=== PATIENT | female | born 1960 | race African-American/Black ===

== ENCOUNTER 2017-03-23 13:09 | Emergency (ER) | payer MEDICAID ==
[~2017-03-23] VITALS: Ht 162.6 cm; Wt 72.6 kg
[2017-03-23 13:27] VITALS: BP 146/100
--- NOTE | 2017-03-23 14:04 | Emergency Room Report ---
History of Present Illness General Chief Complaint: Pain Source: EMS (Ashley De.ASukhdev) Present Illness HPI 56-year-old female presents emergency department complaining of 10 out of 10 in severity total body pain x 3 days with lower extremity weakness x 3 days. She reports history of multiple CVAs in the past patient is a poor historian and family was contacted who called 911 and stated that patient was complaining of subjective fevers, aches and pains throughout the body x3 days denies history of trauma or fall. They report a history of diabetes. She reports long- standing history of present she will weakness and paresthesia in the right arm secondary to CVA in the past . Denies incontinence of bowel or bladder. Denies CP, Palpitations, LOC, AMS, dizziness, Changes in Vision, or a sudden severe headache. (Ashley De P.Adrienne.) Allergies: Coded Allergies: No Known Allergies (Unverified , 03/23/17) Nursing Documentation-[facility] Past Medical History: No History, Except For Hx Cerebrovascular Accident: Yes (Ashley De.Nyasia) Physical Exam Vital Signs Date Time Temp Pulse Resp B/P (MAP) Pulse Ox O2 Delivery O2 Flow Rate FiO2 03/23/17 13:12 98.4 80 20 146/100 100 Room Air (Ashley De.Nyasia) Medical Decision Making PA Attestation Dr. hitchcock is my supervising Physician whom patient management has been discussed with. (Ashley De P.ASukhdev) Diagnostic Impression: Primary Impression: Non-ST elevated myocardial infarction Additional Impressions: Generalized weakness History of CVA with residual deficit UTI (urinary tract infection) Qualified Codes: N30.01 - Acute cystitis with hematuria ER Course 56-year-old female presents emergency department complaining of 10 out of 10 in severity total body pain x 3 days with lower extremity weakness x 3 days. She reports history of multiple CVAs in the past patient is a poor historian and family was contacted who called 911 and stated that patient was complaining of subjective fevers, aches and pains throughout the body x3 days denies history of trauma or fall. They report a history of diabetes. She reports long- standing history of present she will weakness and paresthesia in the right arm secondary to CVA in the past . Denies incontinence of bowel or bladder. Denies CP, Palpitations, LOC, AMS, dizziness, Changes in Vision, or a sudden severe headache. Ddx considered but are not limited to : MS, MG, guilan barre, NV, drug intoxication, hypovolemia, infection, rhabdomylosis, ETOH, CVA/TIA, NMS Vital signs: are WNL, pt. is afebrile H&PE are most consistent with weakness in pt. with multiple RF's and hx of CVA ORDERS: -Troponings : elevated 0.388 - EK BPM NSR - no acute ST changes, inverted t-waves in lateral and inferior leads, possible q-wave in lead 3. --reviewed by Dr. Wing, this interpretation was scribed by MARIE De- -CT Head No contrast: No acute pathology per official radiology report. -CBC: Unremarkable -CMP: elevated glucose of 258 -CK: -UA: Positive for UTI -UDS: positive for barbituates and THC -CXR: ED INTERVENTIONS: -1 Liter NS bolus -4mg Morphine IM -ASA PO -Heparin Bolus -Heparin Drip. DISCHARGE: At this time pt. is stable for d/c to home. Will provide printed patient care instructions, and any necessary prescriptions. Care plan and follow up instructions have been discussed with the patient prior to discharge. Labs Test 03/23/17 15:00 03/23/17 17:00 03/23/17 17:30 03/23/17 18:40 White Blood Count 6.6 K/UL (4.8-10.8) Red Blood Count 4.37 M/UL (4.20-5.40) Hemoglobin 13.3 G/DL (12.0-16.0) Hematocrit 39.8 % (37.0-47.0) Mean Corpuscular Volume 91 FL (80-99) Mean Corpuscular Hemoglobin 30.4 PG (27.0-31.0) Mean Corpuscular Hemoglobin Concent 33.4 G/DL (32.0-36.0) Red Cell Distribution Width 11.4 % (11.6-14.8) Platelet Count 181 K/UL (150-450) Mean Platelet Volume 7.4 FL (6.5-10.1) Neutrophils (%) (Auto) 48.6 % (45.0-75.0) Lymphocytes (%) (Auto) 41.8 % (20.0-45.0) Monocytes (%) (Auto) 8.0 % (1.0-10.0) Eosinophils (%) (Auto) 0.8 % (0.0-3.0) Basophils (%) (Auto) 0.8 % (0.0-2.0) Sodium Level 134 MMOL/L (136-145) Potassium Level 4.1 MMOL/L (3.5-5.1) Chloride Level 101 MMOL/L (98-107) Carbon Dioxide Level 22 MMOL/L (21-32) Anion Gap 11 mmol/L (5-15) Blood Urea Nitrogen 10 mg/dL (7-18) Creatinine 0.9 MG/DL (0.55-1.30) Estimat Glomerular Filtration Rate > 60 mL/min (>60) Glucose Level 258 MG/DL (74-106) Calcium Level 8.5 MG/DL (8.5-10.1) Total Bilirubin 0.4 MG/DL (0.2-1.0) Aspartate Amino Transf (AST/SGOT) 41 U/L (15-37) Alanine Aminotransferase (ALT/SGPT) 47 U/L (12-78) Alkaline Phosphatase 95 U/L (46-116) Total Creatine Kinase 125 U/L (26-308) Creatine Kinase MB 0.9 NG/ML (0.0-3.6) Creatine Kinase MB Relative Index 0.7 Total Protein 7.3 G/DL (6.4-8.2) Albumin 2.8 G/DL (3.4-5.0) Globulin 4.5 g/dL Albumin/Globulin Ratio 0.6 (1.0-2.7) Troponin I 0.388 ng/mL (0.000-0.056) Urine Color Yellow Urine Appearance Clear Urine pH 5 (4.5-8.0) Urine Specific Cubero 1.020 (1.005-1.035) Urine Protein 1+ (NEGATIVE) Urine Glucose (UA) 4+ (NEGATIVE) Urine Ketones Negative (NEGATIVE) Urine Occult Blood 2+ (NEGATIVE) Urine Nitrite Negative (NEGATIVE) Urine Bilirubin Negative (NEGATIVE) Urine Urobilinogen 1 MG/DL (0.0-1.0) Urine Leukocyte Esterase 1+ (NEGATIVE) Urine RBC 10-15 /HPF (0 - 2) Urine WBC 5-10 /HPF (0 - 2) Urine Squamous Epithelial Cells Moderate /LPF (NONE/OCC) Urine Amorphous Sediment Few /LPF (NONE) Urine Bacteria Many /HPF (NONE) Urine Opiates Screen Negative (NEGATIVE) Urine Barbiturates Screen Positive (NEGATIVE) Phencyclidine (PCP) Screen Negative (NEGATIVE) Urine Amphetamines Screen Negative (NEGATIVE) Urine Benzodiazepines Screen Negative (NEGATIVE) Urine Cocaine Screen Negative (NEGATIVE) Urine Marijuana (THC) Screen Positive (NEGATIVE) Prothrombin Time 10.9 SEC (9.30-11.50) Prothromb Time International Ratio 1.0 (0.9-1.1) Activated Partial Thromboplast Time 69 SEC (23-33) (Ashley De) ER Course Patient with NSTEMI No chest pain, SOB 2x elevated troponin Given ASA, heparin drip Endorsed to Dr Roy at [facility] 635pm tele I endorsed for ALS transfer (ROBBY WING M.D.) Last Vital Signs Date Time Temp Pulse Resp B/P (MAP) Pulse Ox O2 Delivery O2 Flow Rate FiO2 03/23/17 13:27 98.4 80 20 146/100 100 Room Air (Ashley De) Disposition: ADMITTED INPATIENT Condition: Serious Ashley De Mar 23, 2017 14:04 ROBBY WING M.D. Mar 23, 2017 18:35
[2017-03-23] MEDS ORDERED: Morphine Sulfate 4mg/ml Inj IVP ONE (14:45)
[2017-03-23 15:21] LABS: BASOPHILS % (AUTO) 0.8 % (0.0-2.0); EOSINOPHILS % (AUTO) 0.8 % (0.0-3.0); LYMPHOCYTES % (AUTO) 41.8 % (20.0-45.0); MEAN CORPUSCULAR HEMOGLOBIN 30.4 PG (27.0-31.0); MEAN CORPUSCULAR HGB CONC 33.4 G/DL (32.0-36.0); MEAN CORPUSCULAR VOLUME 91 FL (80-99); MEAN PLATELET VOLUME 7.4 FL (6.5-10.1); NEUTROPHILS % (AUTO) 48.6 % (45.0-75.0); PLATELET COUNT 181 K/UL (150-450); RED BLOOD COUNT 4.37 M/UL (4.20-5.40); RED CELL DISTRIBUTION WIDTH 11.4 % (11.6-14.8); WHITE BLOOD COUNT 6.6 K/UL (4.8-10.8)
[2017-03-23 15:41] LABS: ALANINE AMINOTRANSFERASE 47 U/L (12-78); ALBUMIN/GLOBULIN RATIO 0.6 (1.0-2.7); ANION GAP 11 mmol/L (5-15); ASPARTATE AMINO TRANSFERASE 41 U/L (15-37); CALCIUM 8.5 MG/DL (8.5-10.1); CARBON DIOXIDE 22 MMOL/L (21-32); CHLORIDE 101 MMOL/L (98-107); CREATININE 0.9 MG/DL (0.55-1.30); GLOMERULAR FILTRATION RATE > 60 mL/min (>60); POTASSIUM 4.1 MMOL/L (3.5-5.1); SODIUM 134 MMOL/L (136-145); TOTAL PROTEIN 7.3 G/DL (6.4-8.2)
[2017-03-23 15:43] LABS: CKMB 0.9 NG/ML (0.0-3.6)
--- NOTE | 2017-03-23 15:45 | Diagnostic Imaging Report ---
Indication: Dyspnea Comparison: None A single view chest radiograph was obtained. Findings: Cardiomediastinal appearance is within normal limits for age. Pulmonary vascularity is appropriate. The diaphragmatic contour is smooth and costophrenic angles are sharp. No pleural effusions are identified. The bones are unremarkable. Impression: No acute findings
--- NOTE | 2017-03-23 15:55 | Diagnostic Imaging Report ---
Indication: Headache Technique: Contiguous 5 mm thick transaxial imaging of the head obtained in a Siemens Sensation [address] scanner. Soft tissue and bone windows generated. Total Dose length Product (DLP): [address] Dose Index Volume (CTDIvol): 70.38, 0.15 mGy Comparison: none Findings: There is an area of encephalomalacia centered about the subcortical white matter and pérez radiata in the area of the left temporal lobe and parietal lobe. Findings are probably in the basis of old ischemia. Please correlate clinically. There is no definite mass effect or edema. No acute hemorrhage or midline shift identified. The bones are unremarkable. Impression: Left temporoparietal encephalomalacia probably in the basis of old ischemia. The CT scanner at [facility] is accredited by the [employer] and the scans are performed using dose optimization techniques as appropriate to a performed exam including Automatic Exposure control.
[2017-03-23 17:30] VITALS: BP 125/65
[2017-03-23] MEDS ORDERED: Heparin 25,000u/D5W 500ml 500 ML IV SCH (17:45)
[2017-03-23] MEDS ORDERED: Heparin 5000 units/ml inj IV ONE (17:45)
[2017-03-23 17:57] LABS: APPEARANCE,URINE CLEAR; KETONES,URINE NEGATIVE (NEGATIVE); LEUKOCYTE ESTERASE ,URINE 1+ (NEGATIVE); NITRITE,URINE NEGATIVE (NEGATIVE); PH,URINE 5 (4.5-8.0); PROTEIN,URINE 1+ (NEGATIVE); UROBILINOGEN,URINE 1 MG/DL (0.0-1.0)
[2017-03-23 18:13] LABS: SQUAMOUS EPITHELIAL CELL,UR MODERATE /LPF (NONE/OCC)
[2017-03-23 18:14] LABS: AMORPHOUS SEDIMENT,UR FEW /LPF; BACTERIA,URINE MANY /HPF
[2017-03-23 18:57] LABS: PROTHROMBIN TIME 10.9 SEC (9.30-11.50)
[2017-03-23 19:23] VITALS: BP 116/54
[2017-03-23] MEDS ORDERED: Cephalexin 500mg cap ORAL ONE (19:45)
[2017-03-23 21:23] VITALS: BP 102/62
[2017-03-23 22:22] VITALS: BP 121/60
--- NOTE | 2017-03-24 15:31 | Cardiology Report ---
APPROVED REPORT EKG Measurement Heart [id number] Normal sinus rhythm Possible Inferior infarct, age undetermined Anterolateral infarct, age undetermined Abnormal ECG
== END 2017-03-23 22:22 | disposition short-term general hospital (02) ==
LOC: EDBD 13:09 → EMR 13:58
DX: I21.4 Non-ST elevation (NSTEMI) myocardial infarction (principal); N39.0 Urinary tract infection, site not specified; I69.331 Monoplegia of upper limb following cerebral infarction affecting right dominant side
CPT/HCPCS: 36415; 70450; 71010; 80053; 80306; 81003; 82550; 82553; 84484; 85025; 85610; 85730; 87086; 87181; 93005; 96361; 96365; 96375; 99285; J1644; J2270